=== PATIENT | male | born 1950 | race Caucasian/White ===

== ENCOUNTER 2018-06-13 11:58 | Inpatient (IN) | payer OTHER ==
[2018-06-13 12:45] VITALS: BMI 25.5
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
[2018-06-13] MEDS ORDERED: ACETAMINOPHEN 325 MG TABLET (FP) PO PRN (15:05)
[2018-06-13] MEDS ORDERED: MAG HYDROX/AL HYDROX/SIMETH 30 ML UNIT-DOSE CUP PO PRN (15:05)
[2018-06-13] MEDS ORDERED: MAGNESIUM HYDROX 2400MG/30ML ORAL SUSPENSION 30 ML CUP PO PRN (15:05)
[2018-06-13] MEDS ORDERED: MAGNESIUM CITRATE 300 ML BOTTLE PO PRN (15:05)
[2018-06-13] MEDS ORDERED: IBUPROFEN 400 MG TABLET (FP) PO PRN (15:05)
[2018-06-13] MEDS ORDERED: MENTHOL/PHENOL 1 EACH UD MM PRN (15:05)
[2018-06-13] MEDS ORDERED: NICOTINE POLACRILEX 2 MG GUM BC PRN (15:05)
[2018-06-13] MEDS ORDERED: guaiFENesin/D-METHORPHAN HB 10 ML UNIT-DOSE CUPS PO PRN (15:05)
[2018-06-13] MEDS ORDERED: P-EPHED 60MG/TRIPROLIDI 2.5MG TABLET PO PRN (15:05)
[2018-06-13] MEDS ORDERED: TUBERCULIN PPD 5 TU/0.1ML VIAL ID ONE (19:23)
[2018-06-13] MEDS: THIAMINE HCL 100 MG TABLET (FP) PO SCH (21:48)
[2018-06-13] MEDS: TAMSULOSIN HCL 0.4 MG CAP PO SCH (21:48)
[2018-06-13] MEDS: MELATONIN 5 MG TABLETS PO PRN (21:49)
[2018-06-14 03:47] LABS: URINE APPEARANCE SLCLOUDY; URINE BILIRUBIN NEGATIVE (<2.0 mg/dL); URINE COLOR YELLOW; URINE GLUCOSE (UA) NEGATIVE (NEGATIVE); URINE KETONE NEGATIVE (NEGATIVE); URINE LEUK ESTERASE NEGATIVE (NEGATIVE); URINE NITRITE NEGATIVE (NEGATIVE); URINE PROTEIN NEGATIVE (NEGATIVE); URINE UROBILINOGEN NEGATIVE mg/dL (0.2-1.0)
[2018-06-14] MEDS: PRENATAL VITAMINS W/ FOLIC ACID TABLET (FP) PO SCH (10:22)
[2018-06-14] MEDS: NIFEdipine E.R. 30 MG TABLET (FP) PO SCH (10:22)
[2018-06-14 10:57] LABS: HEMOGLOBIN 14.1 GM/dL (11.7-16.9); MCHC 32.1 g/dl (32.0-35.9); MEAN CELL VOLUME 93.4 fl (80-96); MEAN PLT VOLUME 9.4 fl (7.5-11.1); PLATELET COUNT 151 K/MM3 (134-434); RBC 4.72 M/mm3 (4.00-5.60); RDW 14.9 % (11.9-15.9); WHITE BLOOD COUNT 5.5 K/mm3 (4.0-10.0)
[2018-06-14 12:32] LABS: ALBUMIN 3.9 g/dl (3.4-5.0); ALK PHOS 97 U/L (45-117); ANION GAP 11 MMOL/L (8-16); BILIRUBIN,TOTAL 0.4 mg/dL (0.2-1); BLOOD UREA NITROGEN 27 mg/dL (7-18); CALCIUM 9.1 mg/dL (8.5-10.1); CHLORIDE 103 mmol/L (98-107); CO2 25 mmol/L (21-32); GLUCOSE,RANDOM 142 mg/dL (74-106); POTASSIUM 4.2 mmol/L (3.5-5.1); SGOT/AST 13 U/L (15-37); SGPT/ALT 16 U/L (13-61); SODIUM 138 mmol/L (136-145); TOT PROT 7.1 g/dl (6.4-8.2)
[2018-06-14] MEDS: TAMSULOSIN HCL 0.4 MG CAP PO SCH (22:13)
[2018-06-14] MEDS: THIAMINE HCL 100 MG TABLET (FP) PO SCH (22:13)
[2018-06-14] MEDS: MELATONIN 5 MG TABLETS PO PRN (22:13)
[2018-06-14] MEDS: PATIENT'S OWN MEDICATION (NON-FORMULARY) (Mirtazapine [Remeron -] 15 MG) PO SCH (23:35)
[2018-06-15] MEDS: NIFEdipine E.R. 30 MG TABLET (FP) PO SCH (10:28)
[2018-06-15] MEDS: PRENATAL VITAMINS W/ FOLIC ACID TABLET (FP) PO SCH (10:29)
[2018-06-15] MEDS: THIAMINE HCL 100 MG TABLET (FP) PO SCH (21:54)
[2018-06-15] MEDS: TAMSULOSIN HCL 0.4 MG CAP PO SCH (21:55)
[2018-06-15] MEDS: PATIENT'S OWN MEDICATION (NON-FORMULARY) (Mirtazapine [Remeron -] 15 MG) PO SCH (21:56)
[2018-06-16] MEDS: NIFEdipine E.R. 30 MG TABLET (FP) PO SCH (10:29)
[2018-06-16] MEDS: PRENATAL VITAMINS W/ FOLIC ACID TABLET (FP) PO SCH (10:29)
--- NOTE | 2018-06-16 16:46 | HP ---
Psychiatrist Admission - Data Date of interview: 06/16/18 Admission source: [facility]. Referred by [facility]. Identifying data: Case of a 68 y/o male referred directly by [facility] to [facility] for rehabilitation co-morbid with Schizoaffective Disorder. Assigned to [address] Patient is , a father of two, domiciled, unemployed and supported on pension benefits (retired as a professional touch up painter) . Medical History: Significant for hypertension, renal stones (2005), hepatitis C and abdominal hernia. Psychiatric History: No reported history of psychiatric hospitalizations. Officially diagnosed with Schizoaffective Disorder and followed in the past at [facility] (Dr Chandra). Prescribed a regimen of seroquel XL 300 mg/hs + mirtazapine 15 mg/hs. Mr Martin indicates that he has NOT seen his psychiatrist for past 4 MONTHS (no show). Admits to not keeping his appointments. States that he depended on his primary care physician for refills of his psychotropic medications. History of recurrent heroin overdoses but NO suicide attempts. Physical/Sexual Abuse/Trauma History: Patient denies. Additional Comment: Profile of substance abuse as reported by the patient, on admission, at [facility] : Smoking history: Current every day smoker. Have you smoked in the past 12 months: Yes. Aproximately how many cigarettes per day: 8. Cigars Per Day: 0. Hx Chewing Tobacco Use: No. Initiated information on smoking cessation: No. - Substances Abused. Heroin. Route: Injection. Frequency: Daily. Amount used: 10-12 bags. Age of first use: 20. Date of Last Use: 06/08/18. Urine Drug Screen Results: BZO-Benzodiazepines. Noted. Vital Signs: Vital Signs - 24 hr 06/16/18 06/16/18 06/16/18 03:30 07:10 10:00 Temperature 98.6 F Pulse Rate 75 82 Respiratory 18 18 17 Rate Blood Pressure 115/78 112/77 Allergies/Adverse Reactions: Allergies Allergy/AdvReac Type Severity Reaction Status Date / Time No Known Drug Allergies Allergy Unknown Verified 06/13/18 13:04 turkey Allergy Intermediate Rash Uncoded 06/13/18 19:24 - Substance Abuse/Tx History Hx Alcohol Use: No Hx Substance Use: Yes (heroin since age 20, nicotine) Substance Use Type: Heroin (see section of additional comments ) Hx Substance Use Treatment: Yes (already known to [facility]) Mental Status Exam - Mental Status Exam Alert and Oriented to: Time, Place, Person Cognitive Function: Good Patient Appearance: Well Groomed Mood: Nervous, Apprehensive Affect: Mood Congruent Patient Behavior: Cooperative Speech Pattern: Clear, Appropriate Voice Loudness: Normal Thought Process: Goal Oriented Thought Disorder: Not Present Hallucinations: Denies Suicidal Ideation: Denies Homicidal Ideation: Denies Insight/Judgement: Poor Sleep: Poorly, Difficulty falling asleep Appetite: Fair Muscle strength/Tone: Normal Gait/Station: Normal Psychiatric Findings - Problem List (Hector 1, 2,3) (1) Schizoaffective disorder Current Visit: Yes Status: Chronic (2) Opioid dependence Current Visit: Yes Status: Chronic Comment: History and self-report. Toxicology is negative on admission. (3) Nicotine dependence Current Visit: Yes Status: Chronic Qualifiers: Nicotine product type: cigarettes Substance use status: uncomplicated Qualified Code(s): F17.210 - Nicotine dependence, cigarettes, uncomplicated (4) Non-compliant patient Current Visit: Yes Status: Chronic (5) Insomnia Current Visit: Yes Status: Chronic - Initial Treatment Plan Initial Treatment Plan: Psychoeducation. Sleep hygiene. NA meetings. Patient is made aware of the benefits of NA fellowship + naltrexone in addition to psychotherapy. Encouraged to maintain contact with his [facility] psychiatrist + keep adherence to medications. Support provided. Medications (confirmed by pharmacy claims of 06/12/18) resumed as seroquel XL 300 mg po hs + mirtazapine 15 mg po hs (already ordered). Side effects/benefits of both drugs are discussed with the patient. Mr Martin agrees to this plan of care. Observation.
[2018-06-16] MEDS: TAMSULOSIN HCL 0.4 MG CAP PO SCH (21:58)
[2018-06-16] MEDS: PATIENT'S OWN MEDICATION (NON-FORMULARY) (Mirtazapine [Remeron -] 15 MG) PO SCH (21:58)
[2018-06-16] MEDS: THIAMINE HCL 100 MG TABLET (FP) PO SCH (21:58)
[2018-06-17] MEDS ORDERED: COLLOIDAL OATMEAL 1 BAR EACH TP PRN (09:14)
--- NOTE | 2018-06-17 09:14 | PN ---
[facility] Progress Note Note: c/o chronic back pain- wants pain med also c/o rash on L thumb area for a week, increased itching wants nicotine patch PE Vital Signs - 24 hr 06/16/18 06/17/18 06/17/18 10:00 00:30 03:30 Temperature Pulse Rate 82 Respiratory 17 18 18 Rate Blood Pressure 112/77 06/17/18 07:53 Temperature 97.6 F Pulse Rate 73 Respiratory 16 Rate Blood Pressure 111/74 L hand thumb area with redness and scaly skin Back- no focal tenderness ass: Back pain- prn motrin, strongly suggested exercise to relieve back pain Eczema of hand- aveeno soap, and hydrocortisone ointment nicotine patch- cannot chew gum that was ordered
[2018-06-17] MEDS ORDERED: HYDROCORTISONE 1% TOPICAL OINT 30 GM TUBE TP SCH (10:00)
[2018-06-17] MEDS: NICOTINE 14 MG/24 HOURS TOPICAL PATCH TD SCH (10:55)
[2018-06-17] MEDS: PRENATAL VITAMINS W/ FOLIC ACID TABLET (FP) PO SCH (10:55)
[2018-06-17] MEDS: NIFEdipine E.R. 30 MG TABLET (FP) PO SCH (10:55)
[2018-06-17] MEDS: HYDROCORTISONE 1% TOPICAL OINT 30 GM TUBE TP SCH ×2 (10:55→21:55)
--- NOTE | 2018-06-17 18:18 | PN ---
[facility] Progress Note Note: Psychiatry Attending's note (coverage) : Reported fall. Witnessed by peers in the Day Room. Patient examined immediately after incident. Mr Martin denies falling on his own. " I leaned against the table. It gave way. I am fine ". Patient remains ambulatory. Alert and fully oriented. Steady gait. Witnesses corroborated patient's report. Vitals : BP = 147/84 P = 83 R = 18 T = 98.7 No indication for psychiatric intervention.
--- NOTE | 2018-06-17 18:53 | PN ---
S Progress Note Note: Pt states he was standing against table and the table tipped over and he lost balance and fell to floor on knees, pt lightly fell to floor. Pt denies any injuries. Head did not hit floor. Pt without any complaints, no pain Vital Signs - 24 hr 06/17/18 06/17/18 06/17/18 00:30 03:30 07:53 Temperature 97.6 F Pulse Rate 73 Respiratory 18 18 16 Rate Blood Pressure 111/74 CT-knees- no injury noted, no bruises, no open areas A/p: light fall, no injuries/no pain: fall protocol #2
[2018-06-17] MEDS: THIAMINE HCL 100 MG TABLET (FP) PO SCH (21:53)
[2018-06-17] MEDS: TAMSULOSIN HCL 0.4 MG CAP PO SCH (21:53)
[2018-06-17] MEDS: PATIENT'S OWN MEDICATION (NON-FORMULARY) (Mirtazapine [Remeron -] 15 MG) PO SCH (21:55)
[2018-06-18] MEDS: NIFEdipine E.R. 30 MG TABLET (FP) PO SCH (10:47)
[2018-06-18] MEDS: PRENATAL VITAMINS W/ FOLIC ACID TABLET (FP) PO SCH (10:47)
[2018-06-18] MEDS: NICOTINE 14 MG/24 HOURS TOPICAL PATCH TD SCH (10:47)
[2018-06-18] MEDS: HYDROCORTISONE 1% TOPICAL OINT 30 GM TUBE TP SCH ×2 (10:49→21:51)
[2018-06-18] MEDS: PATIENT'S OWN MEDICATION (NON-FORMULARY) (Mirtazapine [Remeron -] 15 MG) PO SCH (21:50)
[2018-06-18] MEDS: TAMSULOSIN HCL 0.4 MG CAP PO SCH (21:50)
[2018-06-18] MEDS: THIAMINE HCL 100 MG TABLET (FP) PO SCH (21:50)
[2018-06-19] MEDS: NICOTINE 14 MG/24 HOURS TOPICAL PATCH TD SCH (10:40)
[2018-06-19] MEDS: HYDROCORTISONE 1% TOPICAL OINT 30 GM TUBE TP SCH ×2 (10:40→22:06)
[2018-06-19] MEDS: PRENATAL VITAMINS W/ FOLIC ACID TABLET (FP) PO SCH (10:40)
[2018-06-19] MEDS: NIFEdipine E.R. 30 MG TABLET (FP) PO SCH (10:40)
[2018-06-19] MEDS: THIAMINE HCL 100 MG TABLET (FP) PO SCH (22:05)
[2018-06-19] MEDS: TAMSULOSIN HCL 0.4 MG CAP PO SCH (22:05)
[2018-06-19] MEDS: PATIENT'S OWN MEDICATION (NON-FORMULARY) (Mirtazapine [Remeron -] 15 MG) PO SCH (22:07)
[2018-06-20] MEDS: NICOTINE 14 MG/24 HOURS TOPICAL PATCH TD SCH (11:08)
[2018-06-20] MEDS: PRENATAL VITAMINS W/ FOLIC ACID TABLET (FP) PO SCH (11:08)
[2018-06-20] MEDS: HYDROCORTISONE 1% TOPICAL OINT 30 GM TUBE TP SCH ×2 (11:08→21:49)
[2018-06-20] MEDS: NIFEdipine E.R. 30 MG TABLET (FP) PO SCH (11:08)
[2018-06-20] MEDS: TAMSULOSIN HCL 0.4 MG CAP PO SCH (21:48)
[2018-06-20] MEDS: THIAMINE HCL 100 MG TABLET (FP) PO SCH (21:48)
[2018-06-20] MEDS: PATIENT'S OWN MEDICATION (NON-FORMULARY) (Mirtazapine [Remeron -] 15 MG) PO SCH (21:49)
[2018-06-21] MEDS: PRENATAL VITAMINS W/ FOLIC ACID TABLET (FP) PO SCH (10:40)
[2018-06-21] MEDS: NICOTINE 14 MG/24 HOURS TOPICAL PATCH TD SCH (10:40)
[2018-06-21] MEDS: NIFEdipine E.R. 30 MG TABLET (FP) PO SCH (10:40)
[2018-06-21] MEDS: HYDROCORTISONE 1% TOPICAL OINT 30 GM TUBE TP SCH ×2 (10:41→22:00)
[2018-06-21] MEDS ORDERED: PT OWN MED DRAWER 7, Y5N ONE (20:52)
[2018-06-21] MEDS: TAMSULOSIN HCL 0.4 MG CAP PO SCH (21:58)
[2018-06-21] MEDS: THIAMINE HCL 100 MG TABLET (FP) PO SCH (21:58)
[2018-06-21] MEDS: PATIENT'S OWN MEDICATION (NON-FORMULARY) (Mirtazapine [Remeron -] 15 MG) PO SCH (21:59)
[2018-06-22] MEDS: NICOTINE 14 MG/24 HOURS TOPICAL PATCH TD SCH (10:20)
[2018-06-22] MEDS: NIFEdipine E.R. 30 MG TABLET (FP) PO SCH (10:20)
[2018-06-22] MEDS: PRENATAL VITAMINS W/ FOLIC ACID TABLET (FP) PO SCH (10:20)
[2018-06-22] MEDS: HYDROCORTISONE 1% TOPICAL OINT 30 GM TUBE TP SCH ×2 (10:21→21:59)
[2018-06-22] MEDS: THIAMINE HCL 100 MG TABLET (FP) PO SCH (21:57)
[2018-06-22] MEDS: PATIENT'S OWN MEDICATION (NON-FORMULARY) (Mirtazapine [Remeron -] 15 MG) PO SCH (21:57)
[2018-06-22] MEDS: TAMSULOSIN HCL 0.4 MG CAP PO SCH (21:57)
[2018-06-22] MEDS: MELATONIN 5 MG TABLETS PO PRN (21:58)
[2018-06-23] MEDS: NIFEdipine E.R. 30 MG TABLET (FP) PO SCH (10:35)
[2018-06-23] MEDS: PRENATAL VITAMINS W/ FOLIC ACID TABLET (FP) PO SCH (10:35)
[2018-06-23] MEDS: HYDROCORTISONE 1% TOPICAL OINT 30 GM TUBE TP SCH ×2 (10:35→21:50)
[2018-06-23] MEDS: NICOTINE 14 MG/24 HOURS TOPICAL PATCH TD SCH (10:35)
[2018-06-23] MEDS: PATIENT'S OWN MEDICATION (NON-FORMULARY) (Mirtazapine [Remeron -] 15 MG) PO SCH (21:49)
[2018-06-23] MEDS: THIAMINE HCL 100 MG TABLET (FP) PO SCH (21:49)
[2018-06-23] MEDS: MELATONIN 5 MG TABLETS PO PRN (21:49)
[2018-06-23] MEDS: TAMSULOSIN HCL 0.4 MG CAP PO SCH (21:49)
[2018-06-24] MEDS: NIFEdipine E.R. 30 MG TABLET (FP) PO SCH (10:41)
[2018-06-24] MEDS: HYDROCORTISONE 1% TOPICAL OINT 30 GM TUBE TP SCH ×2 (10:42→21:53)
[2018-06-24] MEDS: NICOTINE 14 MG/24 HOURS TOPICAL PATCH TD SCH (10:42)
[2018-06-24] MEDS: PRENATAL VITAMINS W/ FOLIC ACID TABLET (FP) PO SCH (10:42)
[2018-06-24] MEDS: MELATONIN 5 MG TABLETS PO PRN (21:43)
[2018-06-24] MEDS: THIAMINE HCL 100 MG TABLET (FP) PO SCH (21:43)
[2018-06-24] MEDS: TAMSULOSIN HCL 0.4 MG CAP PO SCH (21:43)
[2018-06-24] MEDS: PATIENT'S OWN MEDICATION (NON-FORMULARY) (Mirtazapine [Remeron -] 15 MG) PO SCH (21:43)
[2018-06-25] MEDS ORDERED: hydrOXYzine PAMOATE 50 MG CAPSULE (FP) PO PRN (09:13)
--- NOTE | 2018-06-25 09:16 | PN ---
Psychiatric Progress Note Vital Signs: Vital Signs Period Temp Pulse Resp BP Sys/Rodriguez Pulse Ox Last 24 Hr 97.7 F 80-86 16-18 122-136/75-84 Date of Session: 06/25/18 Chief Complaint:: Yovani nervious,still having cravings for drinking. HPI: PAtient addressed Opioid dependence comorbid with Schizoaffective disorder. ROS: Significant for HTN. Current Medications: Active Medications Generic Name Dose Route Start Last Admin Trade Name Freq PRN Reason Stop Dose Admin Acamprosate 666 mg 06/25/18 14:00 Campral - PO TID CODY Acetaminophen 650 mg 06/13/18 15:05 Tylenol - PO Q4H PRN FEVER Al Hydroxide/Mg Hydroxide 30 ml 06/13/18 15:05 Mylanta Oral Suspension - PO Q6H PRN DYSPEPSIA Colloidal Oatmeal 1 applic 06/17/18 09:14 06/17/18 10:57 Aveeno Soap - TP 1 applic DAILY PRN Administration HYGEINE Eucalyptus/Menthol/Phenol/Sorbitol 1 each 06/13/18 15:05 Cepastat Lozenge - MM Q4H PRN SORE THROAT Guaifenesin 10 ml 06/13/18 15:05 Robitussin Dm - PO Q6H PRN COUGH Hydrocortisone 1 applic 06/17/18 10:00 06/24/18 21:53 Hytone 1% Ointment - TP 1 applic BID CODY Administration Hydroxyzine Pamoate 50 mg 06/25/18 09:13 Vistaril - PO Q4H PRN ANXIETY Ibuprofen 400 mg 06/13/18 15:05 06/21/18 18:41 Motrin - PO 400 mg Q6H PRN Administration Pain level 4-6 Magnesium Citrate 300 ml 06/13/18 15:05 Citroma - PO Q48H PRN CONSTIPATION Magnesium Hydroxide 30 ml 06/13/18 15:05 Milk Of Magnesia - PO DAILY PRN CONSTIPATION Melatonin 5 mg 06/13/18 22:00 06/24/18 21:43 Melatonin PO 5 mg HS PRN Administration INSOMNIA Nicotine 14 mg 06/17/18 10:00 06/24/18 10:42 Nicoderm Patch - TD 14 mg DAILY CODY Administration Nifedipine 30 mg 06/14/18 10:00 06/24/18 10:41 Procardia Xl - PO 30 mg DAILY CODY Administration Non-Formulary Medication 15 mg 06/14/18 22:30 06/24/18 21:43 Mirtazapine [Remeron -] PO 15 mg HS CODY Administration Non-Formulary Medication 300 mg 06/14/18 22:30 06/24/18 21:43 Quetiapine Fumarate "Xr" [Seroquel Xr] PO 300 mg HS CODY Administration Multivit/Folic Acid/Iron 1 tab 06/14/18 10:00 06/24/18 10:42 Vitamins (Sjr) - PO 1 tab DAILY CODY Administration Pseudoephedrine/Triprolidine 1 combo 06/13/18 15:05 Actifed - PO TID PRN NASAL CONGESTION Tamsulosin HCl 0.4 mg 06/13/18 22:00 06/24/18 21:43 Flomax - PO 0.4 mg HS CODY Administration Thiamine HCl 100 mg 06/13/18 22:00 06/24/18 21:43 Vitamin B1 - PO 100 mg HS CODY Administration Current Side Effect: No Lab tests ordered: No Lab tests reviewed: Yes Provider note:: Chart was revuwed, notes apprecisated.Met with the patient who addressed ongoing craving for alcohol,which provoke anxiety,mood instability,restlessness.Properties of Campral has been discussed with the patient including side effects,benefits.Patient is willing to start Campral 333 mg po 2 tab tid.Vistaril 50 mg po q 4 hrs for anxiety will be added starting today. Emotional support provided. Mental Status Exam - Mental Status Exam Alert and Oriented to: Time, Place, Person Cognitive Function: Grossly Intact Patient Appearance: Unkempt Mood: Anxious Affect: Mood Congruent, Labile Patient Behavior: Cooperative Speech Pattern: Clear Voice Loudness: Normal Thought Process: Goal Oriented Thought Disorder: Being Controlled Hallucinations: Denies Suicidal Ideation: Denies Homicidal Ideation: Denies Insight/Judgement: Fair Sleep: Fair Appetite: Good Muscle strength/Tone: Normal Gait/Station: Normal Psychiatric Treatment Plan - Problem List (1) Nicotine dependence Current Visit: Yes Qualifiers: Nicotine product type: cigarettes Substance use status: uncomplicated Qualified Code(s): F17.210 - Nicotine dependence, cigarettes, uncomplicated (2) Opioid dependence Current Visit: Yes Comment: History and self-report. Toxicology is negative on admission. (3) Schizoaffective disorder Current Visit: Yes (4) Essential hypertension Current Visit: No
[2018-06-25] MEDS: NIFEdipine E.R. 30 MG TABLET (FP) PO SCH (10:59)
[2018-06-25] MEDS: PRENATAL VITAMINS W/ FOLIC ACID TABLET (FP) PO SCH (10:59)
[2018-06-25] MEDS: NICOTINE 14 MG/24 HOURS TOPICAL PATCH TD SCH (10:59)
[2018-06-25] MEDS: HYDROCORTISONE 1% TOPICAL OINT 30 GM TUBE TP SCH ×2 (11:00→22:30)
[2018-06-25] MEDS: ACAMPROSATE CALCIUM 333 MG TABLET.DR PO SCH ×2 (13:09→21:44)
--- NOTE | 2018-06-25 16:42 | PN ---
[facility] Progress Note Note: Patient will complete this program tomorrow 06/26/18.He has met his treatment goals and joaquin continue to address his issues on outpatient basis.patient will continue current medications as per plan.Scripts for 30 days provided.patient is stable for discharge tomorrow 06/26/18.
[2018-06-25] MEDS: THIAMINE HCL 100 MG TABLET (FP) PO SCH (21:44)
[2018-06-25] MEDS: PATIENT'S OWN MEDICATION (NON-FORMULARY) (Mirtazapine [Remeron -] 15 MG) PO SCH (21:44)
[2018-06-25] MEDS: TAMSULOSIN HCL 0.4 MG CAP PO SCH (21:44)
[2018-06-26] MEDS: ACAMPROSATE CALCIUM 333 MG TABLET.DR PO SCH (06:45)
[2018-06-26 07:23] VITALS: BP 139/85; PULSE 81; TEMP 97.5
[2018-06-26] MEDS: PRENATAL VITAMINS W/ FOLIC ACID TABLET (FP) PO SCH (09:52)
[2018-06-26] MEDS: HYDROCORTISONE 1% TOPICAL OINT 30 GM TUBE TP SCH (09:52)
[2018-06-26] MEDS: NIFEdipine E.R. 30 MG TABLET (FP) PO SCH (09:52)
[2018-06-26] MEDS: NICOTINE 14 MG/24 HOURS TOPICAL PATCH TD SCH (09:53)
== END 2018-06-26 10:45 | disposition home or self-care (01) | DRG 895 ==
LOC: YASAS 11:58 → Y5N 17:07
PROVIDERS: ADMIT Psychiatry & Neurology Psychiatry; ATTEND Psychiatry & Neurology Psychiatry
PROC: HZ42ZZZ Group Counseling for Substance Abuse Treatment, Cognitive-Behavioral (ICD-10-PCS; principal; 2018-06-13)
DX: F11.20 Opioid dependence, uncomplicated (principal); F17.210 Nicotine dependence, cigarettes, uncomplicated; F25.9 Schizoaffective disorder, unspecified; F32.9 Major depressive disorder, single episode, unspecified; I10 Essential (primary) hypertension; R21 Rash and other nonspecific skin eruption; G47.00 Insomnia, unspecified; B18.2 Chronic viral hepatitis C; R00.0 Tachycardia, unspecified; W18.39XA Other fall on same level, initial encounter; Y93.89 Activity, other specified; Y92.238 Other place in hospital as the place of occurrence of the external cause; Z91.14 Patient's other noncompliance with medication regimen
CPT/HCPCS: 36415; 80053; 81003; 85027; 86593